=== PATIENT | male | born 1955 | race African-American/Black ===

== ENCOUNTER 2016-09-23 00:20 | Observation (INO) ==
[2016-09-23] MEDS ORDERED: KETOROLAC 60 MG/2 ML VIAL IM STA (00:54)
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
[2016-09-23] MEDS ORDERED: KETOROLAC 60 MG/2 ML VIAL IM ONE (01:11)
[2016-09-23 04:00] LABS: Basophils % 0.4 % (0.0-0.8); Hemoglobin 13.4 GM/DL (14.0-18.0); Immature Granulocytes % 0.3 %; Immature Granulocytes Absolute 0.03 #; Lymphocytes # 0.7 10*3/uL (1.4-4.0); Lymphocytes % 6.2 % (21.2-54.2); Mean Corpuscular HGB Conc 35.3 GM/DL (32-36); Mean Corpuscular Hemoglobin 29 PG (27-34); Mean Corpuscular Volume 83.3 FL (87-102); Mean Platelet Volume 9.7 FL (9.6-12.0); Monocytes # 0.7 10*3/uL (0.11-0.8); Monocytes % 6.8 % (1.7-12.7); Neutrophils # 9.1 10*3/uL (1.4-7.4); Neutrophils % 86.3 % (38.7-73.9); Platelet Count 217 T/CUMM (130-400); Red Blood Count 4.56 MC/CUMM (3.8-5.5); Red Cell Distribution Width 13.2 % (9.3-17.3); White Blood Count 10.5 T/CUMM (4-12)
[2016-09-23] MEDS ORDERED: HYDROmorphone 2 MG/1 ML VIAL IV PRN (04:21)
[2016-09-23] MEDS ORDERED: ONDANSETRON 4 MG/2 ML VIAL IV PRN (04:21)
[2016-09-23] MEDS ORDERED: ACETAMINOPHEN 325 MG TABLET PO PRN (04:21)
[2016-09-23 04:26] LABS: Alanine Aminotransferase 37 U/L (16-61); Albumin 4.1 G/DL (3.4-5.0); Alkaline Phosphatase 69 U/L (45-117); Aspartate Amino Transferase 40 U/L (0-37); Bilirubin,Total < 0.39 MG/DL (0.2-1.0); Blood Urea Nitrogen 12 MG/DL (7-18); Calcium 9.1 MG/DL (8.5-10.1); Glucose 127 MG/DL (74-106); Osmolality,Calculated 271.1 MOS/KG (273-304); Potassium 5.1 MMOL/L (3.5-5.1); Sodium 135 MMOL/L (136-145)
[2016-09-23] MEDS ORDERED: HYDROmorphone 2 MG/1 ML VIAL ONE (05:03)
[2016-09-23] MEDS ORDERED: ONDANSETRON 4 MG/2 ML VIAL ONE (05:03)
[2016-09-23] MEDS ORDERED: PANTOPRAZOLE 40 MG TABLET PO SCH (09:00)
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
--- NOTE | 2016-09-23 11:14 | CT Report ---
CT chest wo con Indication: Rib fractures, difficulty breathing Comparison: Chest x-ray 23 September 2016 Technique: Axial CT imaging of the chest was done at 3 mm intervals with intravenous contrast. Contrast dose was Omnipaque 350. Findings: Multiple rib fractures are present on the left sixth through ninth ribs with minimal displacement. There is trace anterior pneumothorax and trace left effusion. The lungs show no evidence of infiltrates or airspace disease. No nodule or mass is identified. No effusion or pneumothorax is seen. Coronary artery calcifications are present. Otherwise the heart, mediastinum and great vessels appear within normal limits. No other abnormality is identified. Impression: Rib fractures and trace left anterior pneumothorax. Trace left effusion. No other acute findings. This CT exam was performed using one or more the following dose reduction techniques: Automated exposure control, adjustment of the MA and/or KV according to patient size, or use of iterative reconstruction technique. PROCEDURE INTERPRETED AT [facility] DEPARTMENT OF RADIOLOGY Final Report Signed by: Dr. Alex Dallas
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
--- NOTE | 2016-09-23 11:31 | Discharge Summary ---
Hospital Course - Hospital Course Hospital Course: See H&P from today Diagnosis - Discharge Diagnosis (1) Pneumothorax Status: Acute Discharge Plan - Discharge Medications New HYDROcodone/ACETAMIN 7.5-325 [[place] 7.5-325] 1 tablet PO Q4H PRN #40 tablet PRN Reason: Pain Moderate (4-7) Continue Lisinopril/Hydrochlorothiazide [Lisinopril-Hctz 10-12.5 mg Tab] 1 each PO DAILY metFORMIN [Glucophage] 500 mg PO DAILY W/BREAKFAST - Follow Up or Referral - Forms/Instructions Exam - Constitutional Vitals: Period Temp Pulse Resp BP Sys/Enriquez Pulse Ox Last 24 Hr 98.1 F-98.1 F 83-85 20-20 137-178/61-83 95-99 Discharge Results Procedures and tests throughout hospitalization: Pending Orders 09/23/16 08:33 XR chest 2V Stat 09/24/16 04:00 XR chest 2V IN AM Labs on day of discharge: Labs from last 24 hours 09/23/16 09/23/16 09/23/16 07:55 03:53 03:53 WBC 10.5 RBC 4.56 Hgb 13.4 L Hct 38.0 L MCV 83.3 L MCH 29 MCHC 35.3 RDW 13.2 Plt Count 217 MPV 9.7 Neut % (Auto) 86.3 H Lymph % (Auto) 6.2 L Barnwell % (Auto) 6.8 Eos % (Auto) 0.0 Baso % (Auto) 0.4 Neut # (Auto) 9.1 H Lymph # (Auto) 0.7 L Barnwell # (Auto) 0.7 Eos # (Auto) 0.0 Baso # (Auto) 0.0 Immature Gran % 0.3 Nucleated RBC % 0.0 Immature Gran # 0.03 Nucleated RBCs # 0.00 Sodium 135 L Potassium 5.1 Chloride 104 Carbon Dioxide 19 L Anion Gap 17.1 H BUN 12 Creatinine 0.90 GFR Calculation 118 BUN/Creatinine Ratio 13.00 Glucose 127 H POC Glucose 63 L Calculated Osmolality 271.1 L Calcium 9.1 Total Bilirubin < 0.39 AST 40 H ALT 37 Alkaline Phosphatase 69 Total Protein 8.0 Albumin 4.1 Globulin 3.9 H Albumin/Globulin Ratio 1.0 L DS: Provider Date of admission: 09/23/16 04:21 Primary care physician: . No PCP Attending physician on admission: Nelson Shaffer MD Consults: 09/23/16 05:29 Consult to Pastoral Services [CONS] Routine Comment: Pastoral Screen: Request Stapler Hand Visit Pastoral Screen Source of Request: Patient Discharging clinician: Nelson Shaffer MD
[2016-09-23 11:42] VITALS: BP 157/72
--- NOTE | 2016-09-24 09:51 | XRay Report ---
Exam: XR chest 2V Indication: Shortness of breath Comparison study: 09/23/2016 Findings: The cardiac silhouette and mediastinal structures are stable from prior. Patchy perihilar and basilar interstitial opacities are noted bilaterally, similar to prior and may represent atelectasis/developing infiltrates. Trace pleural effusions are not excluded. There is no consolidation or pneumothorax. Left-sided rib fractures are not well visualized. Impression: Similar minimal patchy basilar opacities may represent atelectasis or developing infiltrates. Trace pleural effusions are also suspected. PROCEDURE INTERPRETED AT [facility] DEPARTMENT OF RADIOLOGY Final Report Signed by: Fidel Cao
== END 2016-09-23 12:56 | disposition home or self-care (01) ==
LOC: N.ED 00:20 → N.EDINP 00:20 → N.4E 04:56
PROVIDERS: ADMIT Surgery; ATTEND Surgery